=== PATIENT | male | born 1990 | race Caucasian/White ===

== ENCOUNTER 2016-11-28 00:48 | Emergency (ER) | payer OTHER ==
--- NOTE | 2016-11-28 01:20 | ED ORDER SUMMARY ---
..... Patient: KIMI CELESTE JR OrderSheet [facility] VisitID: [id number] [address] [place] [address] 26y, M Registration Date/Time: 11/28/2016 ORDER SHEET Weight: 83.9 kg (stated) Allergies: Penicillin GENERAL ORDERS: Hand 3 or 4V Right Urgent (01:07 11/28/2016 Jose M Bradshaw) (1:12 AMcQuoid ER Tech1) Ice (01:07 11/28/2016 Jose M Bradshaw) (1:09 HSoule) MEDICATION ORDERS: IV FLUIDS: ORDER SHEET NOTES: [Electronically signed by Gabbi Tilley (02:54 11/28/2016)] [Electronically signed by Alexys Vences Dr. (09:57 12/05/2016)] [Electronically locked/signed by Gabbi Tilley (02:54 11/28/2016)]
--- NOTE | 2016-11-28 01:20 | ED NURSING NOTES ---
Clinical Report - Nurses [address] [place] [address] [place] [address] 11/28/2016 0:51 [id number] Triage time 00:56 Nov 28 2016. Chief Complaint: INJURY TO RIGHT HAND. SEPSIS SCREEN: Sepsis Screen: negative. Negative (no infection suspected/documented). TOBI COMA SCORE: Tobi Coma Scale: 15- eyes open spontaneously (4); best verbal response- oriented x 4 (5); best motor response- obeys commands (6). --01:03 AliM 00:56 11/28/16. BP: 123/77. HR: 89. RR: 14. O2 saturation: 98%. Temp: 97.8 F (oral). Pain level now: 04/11. --01:03 AliM. Weight: 83.9 kg stated. Height/Length: 77 inches Per Patient. BMI: 22. --01:02 AliM. Medications None. --00:58 AliM. Allergies Penicillin. --00:58 AliM. History Arrived by private vehicle. Historian: patient. Accompanied by family. Primary physician (no PCP). ( Swollen Right hand). This occurred just prior to arrival. Mechanism of injury: a single moderate blow (Pt hit wall). ( Pt states he hit the wall with his right hand.). No neck pain, weakness or numbness. PAST MEDICAL HX: Tetanus immunization status is not up-to-date. SOCIAL HX: Light tobacco smoker- less than 1/2 a pack per day. Alcohol use; consumes beer daily. History of occasional drug use: marijuana. No infectious disease exposure. ABUSE ASSESSMENT: No report of abuse. FALL RISK ASSESSMENT: Fall risk assessment completed. No fall risk identified. NUTRITIONAL RISK ASSESSMENT: The nutritional risk assessment revealed no deficiencies. FUNCTIONAL ASSESSMENT: Functional assessment: no impairments noted. LEARNING NEEDS ASSESSMENT: The learning needs assessment revealed no barriers. SKIN INTEGRITY ASSESSMENT: Skin integrity risk assessment completed. No skin integrity risk identified. --01:03 AliM. ADDITIONAL SURGERIES: Appendectomy. --00:58 AliM. Interventions ID band on patient. To treatment room. --01:03 Yulissa. PHYSICAL ASSESSMENT Ambulatory to room. GENERAL / NEURO / PSYCH: Oriented X 4. Alert. Appears in no acute distress. EXTREMITIES: Limited ROM present in the right hand. Capillary refill is less than 2 seconds in the extremities. Extremity pulses are within normal limits. Right hand: tenderness, swelling and ecchymosis (Lateral 3 knuckles are swollen, ecchymosis present.). SKIN: Skin is warm and dry. --01:05 AliM. NURSING PROGRESS NOTES Reassurance given. Two patient identifiers checked. Call light placed in reach. Side rails up x 1. Bed placed in lowest position. Brakes of bed on. Patient ready for evaluation- ED physician notified. --01:06 AliM Patient walked to radiology with tech. (01:11 Nov 28 2016). --01:11 Gabbi Tilley. DISPOSITION / DISCHARGE Condition at departure: unchanged. No learning barriers present. Discharge instructions provided and reviewed with the patient. Patient verbalized understanding. Written instructions provided in [place]. ( Taught pt not to drive while taking [place], may experience sleepiness, take with food if upset stomach occurs. Apply ice to right hand for 20 minutes at a time. Keep hand elevated to reduce swelling. Pt denied further questions.). The patient was discharged by the physician. He was discharged home and accompanied by seed district sales manager. He left the Emergency Department ambulatory and via private vehicle. Patient driving. FALL RISK ASSESSMENT: Fall risk assessment completed. No fall risk identified. --01:37 AliM 01:37 11/28/16. Pain level now: 04/11. --01:38 AliM 02:53 11/28/16. ( Charting reviewed by writing RN). --02:53 Gabbi Tilley. Locked/Released at 11/28/2016 2:54 by Gabbi Tilley,
--- NOTE | 2016-11-28 01:20 | ED NURSING NOTES ---
Clinical Report - Nurses [place] [address] [place] [address] 11/28/2016 0:51 [id number] Triage time 00:56 Nov 28 2016. Chief Complaint: INJURY TO RIGHT HAND. SEPSIS SCREEN: Sepsis Screen: negative. Negative (no infection suspected/documented). TOBI COMA SCORE: Tobi Coma Scale: 15- eyes open spontaneously (4); best verbal response- oriented x 4 (5); best motor response- obeys commands (6). --01:03 AliM 00:56 11/28/16. BP: 123/77. HR: 89. RR: 14. O2 saturation: 98%. Temp: 97.8 F (oral). Pain level now: 04/11. --01:03 AliM. Weight: 83.9 kg stated. Height/Length: 77 inches Per Patient. BMI: 22. --01:02 AliM. Medications None. --00:58 AliM. Allergies Penicillin. --00:58 AliM. History Arrived by private vehicle. Historian: patient. Accompanied by family. Primary physician (no PCP). ( Swollen Right hand). This occurred just prior to arrival. Mechanism of injury: a single moderate blow (Pt hit wall). ( Pt states he hit the wall with his right hand.). No neck pain, weakness or numbness. PAST MEDICAL HX: Tetanus immunization status is not up-to-date. SOCIAL HX: Light tobacco smoker- less than 1/2 a pack per day. Alcohol use; consumes beer daily. History of occasional drug use: marijuana. No infectious disease exposure. ABUSE ASSESSMENT: No report of abuse. FALL RISK ASSESSMENT: Fall risk assessment completed. No fall risk identified. NUTRITIONAL RISK ASSESSMENT: The nutritional risk assessment revealed no deficiencies. FUNCTIONAL ASSESSMENT: Functional assessment: no impairments noted. LEARNING NEEDS ASSESSMENT: The learning needs assessment revealed no barriers. SKIN INTEGRITY ASSESSMENT: Skin integrity risk assessment completed. No skin integrity risk identified. --01:03 AliM. ADDITIONAL SURGERIES: Appendectomy. --00:58 AliM. Interventions ID band on patient. To treatment room. --01:03 Yulissa. PHYSICAL ASSESSMENT Ambulatory to room. GENERAL / NEURO / PSYCH: Oriented X 4. Alert. Appears in no acute distress. EXTREMITIES: Limited ROM present in the right hand. Capillary refill is less than 2 seconds in the extremities. Extremity pulses are within normal limits. Right hand: tenderness, swelling and ecchymosis (Lateral 3 knuckles are swollen, ecchymosis present.). SKIN: Skin is warm and dry. --01:05 AliM. NURSING PROGRESS NOTES Reassurance given. Two patient identifiers checked. Call light placed in reach. Side rails up x 1. Bed placed in lowest position. Brakes of bed on. Patient ready for evaluation- ED physician notified. --01:06 AliM Patient walked to radiology with tech. (01:11 Nov 28 2016). --01:11 Gabbi Tilley. DISPOSITION / DISCHARGE Condition at departure: unchanged. No learning barriers present. Discharge instructions provided and reviewed with the patient. Patient verbalized understanding. Written instructions provided in [place]. ( Taught pt not to drive while taking [place], may experience sleepiness, take with food if upset stomach occurs. Apply ice to right hand for 20 minutes at a time. Keep hand elevated to reduce swelling. Pt denied further questions.). The patient was discharged by the physician. He was discharged home and accompanied by print designer. He left the Emergency Department ambulatory and via private vehicle. Patient driving. FALL RISK ASSESSMENT: Fall risk assessment completed. No fall risk identified. --01:37 AliM 01:37 11/28/16. Pain level now: 04/11. --01:38 AliM 02:53 11/28/16. ( Charting reviewed by writing RN). --02:53 Gabbi Tilley. Locked/Released at 11/28/2016 2:54 by Gabbi Tilley,
--- NOTE | 2016-11-28 01:20 | ED CLINICAL REPORT ---
Clinical Report - Physicians/Mid Levels [facility] [address] [place] [address] 11/28/2016 0:51 Patient: KIMI CELESTE JR Time Seen: 0100. Arrived- By private vehicle. Historian- patient. HISTORY OF PRESENT ILLNESS Chief Complaint: Injury to the right hand. The injury happened today. (punched a wall). Occurred at home. Patient is experiencing moderate pain. Patient denies injury to the head or neck. No other injury. REVIEW OF SYSTEMS No swelling, tingling, numbness, weakness or foreign body. No skin laceration. All systems otherwise negative, except as recorded above. PAST HISTORY See nurses notes. Tetanus immunization status is up-to-date. SOCIAL HISTORY Smoker- current status unknown. Occasional alcohol use. History of occasional drug use: marijuana. Is a local resident. ADDITIONAL NOTES The nursing notes have been reviewed. PHYSICAL EXAM Vital Signs: 11/28/2016 00:56 BP: 123/77. HR: 89. RR: 14. O2 saturation: 98%. Temp: 97.8 F. Pain level now: 7/10. Blood pressure normal. Oxygen saturation normal. Appearance: Alert. Oriented X3. No acute distress. Head: Head atraumatic. Eyes: Pupils equal, round and reactive to light. Eyes normal inspection. Neck: Normal inspection. Neck supple. C-spine non-tender. CVS: Normal heart rate and rhythm. Heart sounds normal. Pulses normal. Respiratory: No respiratory distress. Breath sounds normal. Chest nontender. Back: No tenderness. Normal inspection. ROM normal. Skin: Skin warm and dry. Skin intact. Extremities: (right hand swelling and ecchymosis over the distal metatarsals of the 4th - 5th digit. no crepitus. no lana abnormalities. no tenderness or evidence of trauma to the rest of the hand and upper extremity. compartments soft. skin intact.). Neuro, Vascular and Tendons: Vascular status intact. Sensation intact. Motor intact. Tendon function intact. LABS, X-RAYS, AND EKG Rt Hand X-ray: No fracture. Normal alignment. No bony lesion, air in the soft tissue or foreign body. Joint spaces normal. Soft tissue swelling. Views: AP, lateral and oblique. Technique: good. The X-rays were independently viewed by me and interpreted contemporaneously by me. PROGRESS AND PROCEDURES Course of Care: he patient is a pleasant 26-year-old male presenting for regards to right-sided hand pain. Patient with swelling noted to thedorsal aspect of the right hand. No bony abnormalities noted. Patient will be evaluated radiographs for any evidence of boxer's fracture. Patient is neurovascularly intact. No signs of infection. Skin is also intact. No concern for fight bite. Patient's radiographs are noted for the findings above. No acute osseous abnormalities noted on my examination. REPEAT EXAMINATION Patient continues to be neurovascularly intact. Discussed with patient diagnosis, workup, home care, follow-up, and return precautions. Also discussed with patient diagnncertainty here in the emergency department and need for follow-up and the clinic. Also discussed with patient possibility of missed fractures here in the emergency department radiographs reviewed here. CLINICAL IMPRESSION Single contusion with soft tissue hematoma to the right hand. INSTRUCTIONS Warnings: GENERAL WARNINGS: Return or contact your physician immediately if your condition worsens or changes unexpectedly, if not improving as expected, or if other problems arise. Specifically return if pain, vomiting, bleeding, breathing difficulty or fever. Your Current Medications: CONTINUE TAKING THE FOLLOWING MEDICATIONS: None*. Prescription Medications: [place] 5 mg / 325 mg tablets: take 1 orally every 6 hours as needed for pain. Dispense ten (10). No refill. Substitution is permissible. OTC Medications: Motrin (available over the counter): take according to label instructions. Follow-up: Return to the emergency department as needed. Follow up with your doctor in three days. Reason for referral: recheck today's concerns. Summary of care provided to patient via paper. Screening today revealed the patient's blood pressure to be in the normal range. The patient should follow up with a primary care provider for blood pressure management. Understanding of the discharge instructions verbalized by patient. (Electronically signed by Alexys Vences Dr. 12/05/2016 9:57)
--- NOTE | 2016-11-28 01:20 | ED ORDER SUMMARY ---
..... Patient: KIMI CELESTE JR OrderSheet [facility] VisitID: [id number] [address] [place] [address] 26y, M Registration Date/Time: 11/28/2016 ORDER SHEET Weight: 83.9 kg (stated) Allergies: Penicillin GENERAL ORDERS: Hand 3 or 4V Right Urgent (01:07 11/28/2016 Jose M Bradshaw) (1:12 AMcQuoid ER Tech1) Ice (01:07 11/28/2016 Jose M Bradshaw) (1:09 HSoule) MEDICATION ORDERS: IV FLUIDS: ORDER SHEET NOTES: [Electronically signed by Gabbi Tilley (02:54 11/28/2016)] [Electronically signed by Alexys Vences Dr. (09:57 12/05/2016)] [Electronically locked/signed by Gabbi Tilley (02:54 11/28/2016)]
--- NOTE | 2016-11-28 08:20 | DIAGNOSTIC IMAGING REPORT ---
PROCEDURE: XR HAND 3 OR 4 VIEWS - RIGHT INDICATION: TRAUMA/INJURY TECHNIQUE: Four views of the right hand. COMPARISON: None. FINDINGS: Normal mineralization. No fractures. Normal osseous alignment. No suspicious soft-tissue calcification or radiodense foreign bodies. IMPRESSION: 1. Intact right hand.
--- NOTE | 2016-12-05 09:57 | ED MED RECONCILIATION SUMMARY ---
Patient: KIMI CELESTE Medication Reconciliation Report [facility] VisitID: [id number] [address] [place] [address] 26y, M Registration Date/Time: 11/28/2016 Weight: 83.9 kg Height/Length: 77 in. BMI: 22.0 ALLERGIES: Penicillin The patient's Home Medications are listed below: NONE. The source(s) of the original Home Medication information: Not obtained. The following Medications were given to the patient in the Emergency Department: None. The following Medications were prescribed to the patient: Motrin (available over the counter): take according to label instructions. -- Alexys Vences Dr. [place] 5 mg / 325 mg tablets: take 1 orally every 6 hours as needed for pain. Dispense ten (10). No refill. Substitution is permissible. -- Alexys Vences Dr.
--- NOTE | 2016-12-05 09:57 | ED DISCHARGE INSTRUCTIONS ---
Patient: KIMI CELESTE JR General Instructions [facility] VisitID: [id number] [place] [address] 26y, M Registration Date/Time: 11/28/2016 Single contusion with soft tissue hematoma to the right hand. INSTRUCTIONS Warnings: GENERAL WARNINGS: Return or contact your physician immediately if your condition worsens or changes unexpectedly, if not improving as expected, or if other problems arise. Specifically return if pain, vomiting, bleeding, breathing difficulty or fever. Your Current Medications: CONTINUE TAKING THE FOLLOWING MEDICATIONS: None*. Prescription Medications: [place] 5 mg / 325 mg tablets: take 1 orally every 6 hours as needed for pain. Dispense ten (10). No refill. Substitution is permissible. OTC Medications: Motrin (available over the counter): take according to label instructions. Follow-up: Return to the emergency department as needed. Follow up with your doctor in three days. Reason for referral: recheck today's concerns. Summary of care provided to patient via paper. Screening today revealed the patient's blood pressure to be in the normal range. The patient should follow up with a primary care provider for blood pressure management. Understanding of the discharge instructions verbalized by patient. ADDITIONAL INFORMATION Contusion: Hand You have a CONTUSION of your hand. This causes local pain, swelling and sometimes bruising. There are no broken bones. This injury takes from a few days to a few weeks to heal. Home Care: 1) Keep your arm elevated to reduce pain and swelling. This is very important during the first 48 hours. 2) Apply an ice pack (ice cubes in a plastic bag, wrapped in a towel) over the injured area for 20 minutes every 1-2 hours the first day. You should continue with ice packs 3-4 times a day for the next two days. Continue the use of ice packs for relief of pain and swelling as needed. 3) You may use acetaminophen (Tylenol) or ibuprofen (Motrin, Advil) to control pain, unless another pain medicine was prescribed. [ NOTE : If you have chronic liver or kidney disease or ever had a stomach ulcer or GI bleeding, talk with your doctor before using these medicines.] Follow Up with your doctor or this facility if you are not starting to improve within the next THREE days. [NOTE: If X-rays were taken, they will be reviewed by a radiologist. You will be notified of any new findings that may affect your care.] Get Prompt Medical Attention if any of the following occur: -- Pain or swelling increases -- Redness, warmth or drainage -- Hand or fingers becomes cold, blue, numb or tingly Hydrocodone Bitartrate, Acetaminophen Oral tablet What is this medicine? ACETAMINOPHEN; HYDROCODONE (a set a BLANCA nayeli fen; fabrice droe KOE done) is a pain reliever. It is used to treat mild to moderate pain. How should I use this medicine? Take this medicine by mouth. Swallow it with a full glass of water. Follow the directions on the prescription label. If the medicine upsets your stomach, take the medicine with food or milk. Do not take more than you are told to take. Talk to your aviation project engineer regarding the use of this medicine in children. This medicine is not approved for use in children. What side effects may I notice from receiving this medicine? Side effects that you should report to your doctor or health healthcare liaison as soon as possible: allergic reactions like skin rash, itching or hives, swelling of the face, lips, or tongue breathing problems confusion feeling faint or lightheaded, falls stomach pain yellowing of the eyes or skin Side effects that usually do not require medical attention (report to your doctor or health healthcare liaison if they continue or are bothersome): nausea, vomiting stomach upset What may interact with this medicine? alcohol antihistamines isoniazid medicines for depression, anxiety, or psychotic disturbances medicines for sleep muscle relaxants naltrexone narcotic medicines (opiates) for pain phenobarbital ritonavir tramadol What if I miss a dose? If you miss a dose, take it as soon as you can. If it is almost time for your next dose, take only that dose. Do not take double or extra doses. Where should I keep my medicine? Keep out of the reach of children. This medicine can be abused. Keep your medicine in a safe place to protect it from theft. Do not share this medicine with anyone. Selling or giving away this medicine is dangerous and against the law. Store at room temperature between 15 and 30 degrees C (59 and 86 degrees F). Protect from light. Keep container tightly closed. Throw away any unused medicine after the expiration date. Discard unused medicine and used packaging carefully. Pets and children can be harmed if they find used or lost packages. What should I tell my health care provider before I take this medicine? They need to know if you have any of these conditions: brain tumor Crohn's disease, inflammatory bowel disease, or ulcerative colitis drink more than 3 alcohol-containing drinks per day drug abuse or addiction head injury heart or circulation problems kidney disease or problems going to the bathroom liver disease lung disease, asthma, or breathing problems an unusual or allergic reaction to acetaminophen, hydrocodone, other opioid analgesics, other medicines, foods, dyes, or preservatives or trying to get breast-feeding What should I watch for while using this medicine? Tell your doctor or health healthcare liaison if your pain does not go away, if it gets worse, or if you have new or a different type of pain. You may develop tolerance to the medicine. Tolerance means that you will need a higher dose of the medicine for pain relief. Tolerance is normal and is expected if you take the medicine for a long time. Do not suddenly stop taking your medicine because you may develop a severe reaction. Your body becomes used to the medicine. This does NOT mean you are addicted. Addiction is a behavior related to getting and using a drug for a non-medical reason. If you have pain, you have a medical reason to take pain medicine. Your doctor will tell you how much medicine to take. If your doctor wants you to stop the medicine, the dose will be slowly lowered over time to avoid any side effects. You may get drowsy or dizzy when you first start taking the medicine or change doses. Do not drive, use machinery, or do anything that may be dangerous until you know how the medicine affects you. Stand or sit up slowly. There are different types of narcotic medicines (opiates) for pain. If you take more than one type at the same time, you may have more side effects. Give your health care provider a list of all medicines you use. Your doctor will tell you how much medicine to take. Do not take more medicine than directed. Call emergency for help if you have problems breathing. The medicine will cause constipation. Try to have a bowel movement at least every 2 to 3 days. If you do not have a bowel movement for 3 days, call your doctor or health healthcare liaison. Too much acetaminophen can be very dangerous. Do not take Tylenol (acetaminophen) or medicines that contain acetaminophen with this medicine. Many non-prescription medicines contain acetaminophen. Always read the labels carefully. You have been given the following additional information: Contusion, Hand Hydrocodone Bitartrate, Acetaminophen Oral tablet (Electronically signed by Alexys Vences Dr. 12/05/2016 9:57)
--- NOTE | 2016-12-05 09:57 | ED MAR SUMMARY ---
..... Medication Administration Record [facility] [address] [place], [place] [id number] Patient: KIMI CELESTE Visit ID: [id number] 26y, M Weight: 83.9 kg Height/Length: 77 in BMI: 22 ALLERGIES: Penicillin
--- NOTE | 2016-12-05 09:57 | ED DISCHARGE INSTRUCTIONS ---
Patient: KIMI CELESTE JR General Instructions [facility] VisitID: [id number] [place] [address] 26y, M Registration Date/Time: 11/28/2016 Single contusion with soft tissue hematoma to the right hand. INSTRUCTIONS Warnings: GENERAL WARNINGS: Return or contact your physician immediately if your condition worsens or changes unexpectedly, if not improving as expected, or if other problems arise. Specifically return if pain, vomiting, bleeding, breathing difficulty or fever. Your Current Medications: CONTINUE TAKING THE FOLLOWING MEDICATIONS: None*. Prescription Medications: [place] 5 mg / 325 mg tablets: take 1 orally every 6 hours as needed for pain. Dispense ten (10). No refill. Substitution is permissible. OTC Medications: Motrin (available over the counter): take according to label instructions. Follow-up: Return to the emergency department as needed. Follow up with your doctor in three days. Reason for referral: recheck today's concerns. Summary of care provided to patient via paper. Screening today revealed the patient's blood pressure to be in the normal range. The patient should follow up with a primary care provider for blood pressure management. Understanding of the discharge instructions verbalized by patient. ADDITIONAL INFORMATION Contusion: Hand You have a CONTUSION of your hand. This causes local pain, swelling and sometimes bruising. There are no broken bones. This injury takes from a few days to a few weeks to heal. Home Care: 1) Keep your arm elevated to reduce pain and swelling. This is very important during the first 48 hours. 2) Apply an ice pack (ice cubes in a plastic bag, wrapped in a towel) over the injured area for 20 minutes every 1-2 hours the first day. You should continue with ice packs 3-4 times a day for the next two days. Continue the use of ice packs for relief of pain and swelling as needed. 3) You may use acetaminophen (Tylenol) or ibuprofen (Motrin, Advil) to control pain, unless another pain medicine was prescribed. [ NOTE : If you have chronic liver or kidney disease or ever had a stomach ulcer or GI bleeding, talk with your doctor before using these medicines.] Follow Up with your doctor or this facility if you are not starting to improve within the next THREE days. [NOTE: If X-rays were taken, they will be reviewed by a radiologist. You will be notified of any new findings that may affect your care.] Get Prompt Medical Attention if any of the following occur: -- Pain or swelling increases -- Redness, warmth or drainage -- Hand or fingers becomes cold, blue, numb or tingly Hydrocodone Bitartrate, Acetaminophen Oral tablet What is this medicine? ACETAMINOPHEN; HYDROCODONE (a set a BLANCA nayeli fen; fabrice droe KOE done) is a pain reliever. It is used to treat mild to moderate pain. How should I use this medicine? Take this medicine by mouth. Swallow it with a full glass of water. Follow the directions on the prescription label. If the medicine upsets your stomach, take the medicine with food or milk. Do not take more than you are told to take. Talk to your rough rounder regarding the use of this medicine in children. This medicine is not approved for use in children. What side effects may I notice from receiving this medicine? Side effects that you should report to your doctor or health home health aide caregiver as soon as possible: allergic reactions like skin rash, itching or hives, swelling of the face, lips, or tongue breathing problems confusion feeling faint or lightheaded, falls stomach pain yellowing of the eyes or skin Side effects that usually do not require medical attention (report to your doctor or health home health aide caregiver if they continue or are bothersome): nausea, vomiting stomach upset What may interact with this medicine? alcohol antihistamines isoniazid medicines for depression, anxiety, or psychotic disturbances medicines for sleep muscle relaxants naltrexone narcotic medicines (opiates) for pain phenobarbital ritonavir tramadol What if I miss a dose? If you miss a dose, take it as soon as you can. If it is almost time for your next dose, take only that dose. Do not take double or extra doses. Where should I keep my medicine? Keep out of the reach of children. This medicine can be abused. Keep your medicine in a safe place to protect it from theft. Do not share this medicine with anyone. Selling or giving away this medicine is dangerous and against the law. Store at room temperature between 15 and 30 degrees C (59 and 86 degrees F). Protect from light. Keep container tightly closed. Throw away any unused medicine after the expiration date. Discard unused medicine and used packaging carefully. Pets and children can be harmed if they find used or lost packages. What should I tell my health care provider before I take this medicine? They need to know if you have any of these conditions: brain tumor Crohn's disease, inflammatory bowel disease, or ulcerative colitis drink more than 3 alcohol-containing drinks per day drug abuse or addiction head injury heart or circulation problems kidney disease or problems going to the bathroom liver disease lung disease, asthma, or breathing problems an unusual or allergic reaction to acetaminophen, hydrocodone, other opioid analgesics, other medicines, foods, dyes, or preservatives or trying to get breast-feeding What should I watch for while using this medicine? Tell your doctor or health home health aide caregiver if your pain does not go away, if it gets worse, or if you have new or a different type of pain. You may develop tolerance to the medicine. Tolerance means that you will need a higher dose of the medicine for pain relief. Tolerance is normal and is expected if you take the medicine for a long time. Do not suddenly stop taking your medicine because you may develop a severe reaction. Your body becomes used to the medicine. This does NOT mean you are addicted. Addiction is a behavior related to getting and using a drug for a non-medical reason. If you have pain, you have a medical reason to take pain medicine. Your doctor will tell you how much medicine to take. If your doctor wants you to stop the medicine, the dose will be slowly lowered over time to avoid any side effects. You may get drowsy or dizzy when you first start taking the medicine or change doses. Do not drive, use machinery, or do anything that may be dangerous until you know how the medicine affects you. Stand or sit up slowly. There are different types of narcotic medicines (opiates) for pain. If you take more than one type at the same time, you may have more side effects. Give your health care provider a list of all medicines you use. Your doctor will tell you how much medicine to take. Do not take more medicine than directed. Call emergency for help if you have problems breathing. The medicine will cause constipation. Try to have a bowel movement at least every 2 to 3 days. If you do not have a bowel movement for 3 days, call your doctor or health home health aide caregiver. Too much acetaminophen can be very dangerous. Do not take Tylenol (acetaminophen) or medicines that contain acetaminophen with this medicine. Many non-prescription medicines contain acetaminophen. Always read the labels carefully. You have been given the following additional information: Contusion, Hand Hydrocodone Bitartrate, Acetaminophen Oral tablet (Electronically signed by Alexys Vences Dr. 12/05/2016 9:57)
--- NOTE | 2016-12-05 09:57 | ED MED RECONCILIATION SUMMARY ---
Patient: KIMI CELESTE Medication Reconciliation Report VisitID: [id number] [address] [place] [address] 26y, M Registration Date/Time: 11/28/2016 Weight: 83.9 kg Height/Length: 77 in. BMI: 22.0 ALLERGIES: Penicillin The patient's Home Medications are listed below: NONE. The source(s) of the original Home Medication information: Not obtained. The following Medications were given to the patient in the Emergency Department: None. The following Medications were prescribed to the patient: Motrin (available over the counter): take according to label instructions. -- Alexys Vences Dr. [place] 5 mg / 325 mg tablets: take 1 orally every 6 hours as needed for pain. Dispense ten (10). No refill. Substitution is permissible. -- Alexys Vecnes Dr.
--- NOTE | 2016-12-05 09:57 | ED MAR SUMMARY ---
..... Medication Administration Record [facility] [address] [place], [place] [id number] Patient: KIMI CELESTE Visit ID: [id number] 26y, M Weight: 83.9 kg Height/Length: 77 in BMI: 22 ALLERGIES: Penicillin
== END 2016-11-28 01:35 | disposition home or self-care (01) ==
LOC: ED SRH 00:48
DX: S60.221A Contusion of right hand, initial encounter (principal); X58.XXXA Exposure to other specified factors, initial encounter; Y99.9 Unspecified external cause status; Y92.009 Unspecified place in unspecified non-institutional (private) residence as the place of occurrence of the external cause; Y93.9 Activity, unspecified

== ENCOUNTER 2017-04-02 17:09 | Emergency (ER) | payer SELFPAY ==
--- NOTE | 2017-04-02 17:30 | ED NURSING NOTES ---
Clinical Report - Nurses [facility] [address] [place] [address] 04/02/2017 17:10 Patient: KIMI CELESTE JR TRIAGE Acuity: LEVEL 5. Chief Complaint: SKIN LESION and INSECT BITE Alert. No acute distress. SEPSIS SCREEN: Sepsis Screen. Negative (no infection suspected/documented). --17:21 Nakita Johns R.N. 17:17 04/02/17. BP: 128/86. HR: 77. RR: 20. O2 saturation: 98% on room air. Temp: 97.9 F (oral). Pain level now: 0/10. --17:21 Nakita Johns R.N. Weight: 81.6 kg stated. Height/Length: 77 inches Per Patient. BMI: 21.3. --17:19 Nakita Johns R.N. Medications None. --17:18 Nakita Johns R.N. Medication/allergy information source: the patient. --17:21 Nakita Johns R.N. Allergies Penicillin. --17:18 Nakita Johns R.N. History Arrived by private vehicle. Historian: patient. Accompanied by friend. Primary physician (none). Reported as located on the left shoulder. This started just prior to arrival. Not itchy, burning or painful. 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 PAST MEDICAL HX: Immunizations: status is unknown. SOCIAL HX: Current every day light tobacco smoker (cigarette)- less than 1/2 a pack per day. Occasional alcohol use. No drug use. FALL RISK ASSESSMENT: Fall risk assessment completed. No fall risk identified. NUTRITIONAL RISK ASSESSMENT: The nutritional risk assessment revealed no deficiencies. FUNCTIONAL ASSESSMENT: Functional assessment: no impairments noted. LEARNING NEEDS ASSESSMENT: The learning needs assessment revealed no barriers. SKIN INTEGRITY ASSESSMENT: Skin integrity risk assessment completed. No skin integrity risk identified. --17:21 Nakita Johns R.N. ADDITIONAL SURGERIES: Appendectomy. --17:18 Nakita Johns R.N. Assessment GENERAL / NEURO / PSYCH: Alert. Oriented X 4. Appears in no acute distress. Patient appears calm and cooperative. RESPIRATORY: Respirations not labored. CVS: Capillary refill less than 2 seconds. GI / : Abdomen soft and nontender. SKIN: Mucous membranes are pink. Skin is warm and dry. --17:21 Nakita Johns R.N. Interventions ID band on patient. To treatment room. --17:21 Nakita Johns R.N. PHYSICAL ASSESSMENT 17:25 04/02/17. Ambulatory to room. GENERAL / NEURO / PSYCH: Alert. The patient does not appear to be in acute distress. Oriented X 4. HEENT: Pupils equal, round and reactive to light. Mucous membranes are pink. RESPIRATORY: Respirations not labored. CVS: Capillary refill less than 2 seconds. GI / : Abdomen nontender. SKIN: Skin is intact, warm and dry. No skin rash. --17:25 Nakita Johns R.N. DISPOSITION / DISCHARGE Departure time: 17:30 Apr 02 2017. Condition at departure: unchanged and stable. No learning barriers present. The patient left prior to discharge education being provided. The patient was discharged by the nurse practitioner. He was discharged home and accompanied by dining manager. He left the Emergency Department ambulatory and via private vehicle. Tennis Centre Manager driving. --18:03 Nakita Johns R.N. Locked/Released at 04/02/2017 18:04 by Nakita Johns R.N.
--- NOTE | 2017-04-02 17:30 | ED CLINICAL REPORT ---
Clinical Report - Physicians/Mid Levels [facility] [address] [place] [address] 04/02/2017 17:10 Patient: KIMI CELESTE JR Time Seen: 17:22; initial patient contact, initial documentation, patient care assumed. Arrived- By private vehicle. Historian- patient. HISTORY OF PRESENT ILLNESS Chief Complaint: LESION and INSECT BITE. This started unknown and is still present and worsening. Not itchy, painful or burning. It has been located on the left shoulder. No cause has been identified. (has no idea what bit/stung him or what happened or how long it has been there, today, family member noticed red streak and it was going towards it heart and they told him that it could kill him, so he came in). Similar symptoms previously: None. Recent medical care: Not recently seen/assessed. REVIEW OF SYSTEMS No fever. All systems otherwise negative, except as recorded above. PAST HISTORY Negative. See nurses notes. ADDITIONAL SURGERIES: Appendectomy. --17:18 Nakita Johns R.N. SOCIAL HISTORY Light tobacco smoker. Occasional alcohol use. No drug use. No recent travel. Is a local resident. FAMILY HISTORY Negative. ADDITIONAL NOTES The nursing notes have been reviewed with agreement regarding the chief complaint, HPI, ROS, PMH and patient medications and allergies. PHYSICAL EXAM Vital Signs: 04/02/2017 17:17 BP: 128/86. HR: 77. RR: 20. O2 saturation: 98%. Temp: 97.9 F. Pain level now: 0/10. Have been reviewed as normal and appear to be correct. Appearance: Alert. Oriented X3. No acute distress. Eyes: Pupils equal, round and reactive to light. Conjunctivae and eyelids normal. Neck: Neck supple. Respiratory: No respiratory distress. Skin: Skin warm and dry. Normal skin color. No rash. Normal skin turgor. Small area of erythema (L anterior shoulder has pin point dot on it with approx 2cm line ? streaking from it, ?abrasion, ?bite). No tenderness, warmth, swelling or lymphangitis. Extremities: Normal external inspection. Extremities nontender. Neuro: Oriented X 3. No motor deficit. No sensory deficit. PROGRESS AND PROCEDURES Course of Care: pt given x2 packets of bacitracin, and instructed to apply it twice daily in case area was starting to get infected, pt very happy and thanked me for the care and fast service. Patient and spouse counseled in person regarding the patient's stable condition and diagnosis. Differential Diagnosis: Other possible considerations: insect bite/sting, abrasion, abscess, mrsa, cellulitis, acne. Above considerations are based on history and physical exam. Differential diagnosis was discussed with patient. Disposition: Discharged home in good and unchanged condition (17:29). Condition: good and stable. CLINICAL IMPRESSION Single unknown insect bite to the left shoulder. Local allergic reaction. No infection. Left. INSTRUCTIONS Warnings: GENERAL WARNINGS: Return or contact your physician immediately if your condition worsens or changes unexpectedly, if not improving as expected, or if other problems arise. Specifically return if problem worsens. Follow-up: Follow up with your doctor in about five days as needed. Call for an appointment. Summary of care provided to patient. Understanding of the discharge instructions verbalized by patient. (Electronically signed by Nikky Davis A.R.N.P. 04/02/2017 18:02)
--- NOTE | 2017-04-02 17:30 | ED NURSING NOTES ---
Clinical Report - Nurses [facility] [address] [place] [address] 04/02/2017 17:10 Patient: KIMI CELESTE JR TRIAGE Acuity: LEVEL 5. Chief Complaint: SKIN LESION and INSECT BITE Alert. No acute distress. SEPSIS SCREEN: Sepsis Screen. Negative (no infection suspected/documented). --17:21 Nakita Johns R.N. 17:17 04/02/17. BP: 128/86. HR: 77. RR: 20. O2 saturation: 98% on room air. Temp: 97.9 F (oral). Pain level now: 0/10. --17:21 Nakita Johns R.N. Weight: 81.6 kg stated. Height/Length: 77 inches Per Patient. BMI: 21.3. --17:19 Nakita Johns R.N. Medications None. --17:18 Nakita Johns R.N. Medication/allergy information source: the patient. --17:21 Nakita Johns R.N. Allergies Penicillin. --17:18 Nakita Johns R.N. History Arrived by private vehicle. Historian: patient. Accompanied by friend. Primary physician (none). Reported as located on the left shoulder. This started just prior to arrival. Not itchy, burning or painful. 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 PAST MEDICAL HX: Immunizations: status is unknown. SOCIAL HX: Current every day light tobacco smoker (cigarette)- less than 1/2 a pack per day. Occasional alcohol use. No drug use. FALL RISK ASSESSMENT: Fall risk assessment completed. No fall risk identified. NUTRITIONAL RISK ASSESSMENT: The nutritional risk assessment revealed no deficiencies. FUNCTIONAL ASSESSMENT: Functional assessment: no impairments noted. LEARNING NEEDS ASSESSMENT: The learning needs assessment revealed no barriers. SKIN INTEGRITY ASSESSMENT: Skin integrity risk assessment completed. No skin integrity risk identified. --17:21 Nakita Johns R.N. ADDITIONAL SURGERIES: Appendectomy. --17:18 Nakita Johns R.N. Assessment GENERAL / NEURO / PSYCH: Alert. Oriented X 4. Appears in no acute distress. Patient appears calm and cooperative. RESPIRATORY: Respirations not labored. CVS: Capillary refill less than 2 seconds. GI / : Abdomen soft and nontender. SKIN: Mucous membranes are pink. Skin is warm and dry. --17:21 Nakita Johns R.N. Interventions ID band on patient. To treatment room. --17:21 Nakita Johns R.N. PHYSICAL ASSESSMENT 17:25 04/02/17. Ambulatory to room. GENERAL / NEURO / PSYCH: Alert. The patient does not appear to be in acute distress. Oriented X 4. HEENT: Pupils equal, round and reactive to light. Mucous membranes are pink. RESPIRATORY: Respirations not labored. CVS: Capillary refill less than 2 seconds. GI / : Abdomen nontender. SKIN: Skin is intact, warm and dry. No skin rash. --17:25 Nakita Johns R.N. DISPOSITION / DISCHARGE Departure time: 17:30 Apr 02 2017. Condition at departure: unchanged and stable. No learning barriers present. The patient left prior to discharge education being provided. The patient was discharged by the nurse practitioner. He was discharged home and accompanied by water treatment plant supervisor. He left the Emergency Department ambulatory and via private vehicle. [employer] Controller driving. --18:03 Nakita Johns R.N. Locked/Released at 04/02/2017 18:04 by Nakita Johns R.N.
--- NOTE | 2017-04-02 18:04 | ED MAR SUMMARY ---
..... Medication Administration Record [facility] [address] [place], [place] [id number] Patient: KIMI CELESTE Visit ID: [id number] 26y, M Weight: 81.6 kg Height/Length: 77 in BMI: 21.3 ALLERGIES: Penicillin
--- NOTE | 2017-04-02 18:04 | ED MED RECONCILIATION SUMMARY ---
Patient: KIMI CELESTE JR Medication Reconciliation Report [facility] VisitID: [id number] [address] [place] [address] 26y, M Registration Date/Time: 04/02/2017 Weight: 81.6 kg Height/Length: 77 in. BMI: 21.3 ALLERGIES: Penicillin The patient's Home Medications are listed below: NONE. The source(s) of the original Home Medication information: patient The following Medications were given to the patient in the Emergency Department: None. The following Medications were prescribed to the patient: None.
--- NOTE | 2017-04-02 18:04 | ED MAR SUMMARY ---
..... Medication Administration Record [facility] [address] [place], [place] [id number] Patient: KIMI CELESTE Visit ID: [id number] 26y, M Weight: 81.6 kg Height/Length: 77 in BMI: 21.3 ALLERGIES: Penicillin
--- NOTE | 2017-04-02 18:04 | ED MED RECONCILIATION SUMMARY ---
Patient: KIMI CELESTE JR Medication Reconciliation Report [facility] VisitID: [id number] [address] [place] [address] 26y, M Registration Date/Time: 04/02/2017 Weight: 81.6 kg Height/Length: 77 in. BMI: 21.3 ALLERGIES: Penicillin The patient's Home Medications are listed below: NONE. The source(s) of the original Home Medication information: patient The following Medications were given to the patient in the Emergency Department: None. The following Medications were prescribed to the patient: None.
--- NOTE | 2017-04-02 18:04 | ED DISCHARGE INSTRUCTIONS ---
Patient: KIMI CELESTE JR General Instructions [facility] VisitID: [id number] [place] [address] 26y, M Registration Date/Time: 04/02/2017 Single unknown insect bite to the left shoulder. Local allergic reaction. No infection. Left. INSTRUCTIONS Warnings: GENERAL WARNINGS: Return or contact your physician immediately if your condition worsens or changes unexpectedly, if not improving as expected, or if other problems arise. Specifically return if problem worsens. Follow-up: Follow up with your doctor in about five days as needed. Call for an appointment. Summary of care provided to patient. Understanding of the discharge instructions verbalized by patient. ADDITIONAL INFORMATION Insect Sting:Local Reaction You have been stung or bitten by an insect. The insects venom or body fluid is causing your skin to react in the area where you were stung or bitten. This often causes redness, itching and swelling. This reaction will fade over a few hours to a few days. An insect bite/sting can become infected 1-3 days later, so watch for the signs below. Sometimes it is hard to tell the difference between a local reaction to the insect bite/sting and an early infection, so antibiotics may be started. Home Care: If itching is a problem, avoid things that heat up your skin (hot showers or baths, direct sunlight) since this will make itching worse. An ice pack (ice cubes in a plastic bag, wrapped in a towel) will reduce local areas of redness and itching. Lanacaine cream or Solarcaine spray (or other product containing "benzocaine") will reduce the itching. Oral Benadryl (diphenhydramine) is an antihistamine available at drug and grocery stores. Unless a prescription antihistamine was given, Benadryl may be used to reduce itching if large areas of the skin are involved. Use lower doses during the daytime and higher doses at bedtime since the drug may make you sleepy. [NOTE: Do not use Benadryl if you have glaucoma or if you are a man with trouble urinating due to an enlarged prostate.] Claritin (loratadine) is an antihistamine that causes less drowsiness and is a good alternative for daytime use. If oral ANTIBIOTICS were prescribed, be sure to take them until finished. You may use acetaminophen (Tylenol) or ibuprofen (Motrin, Advil) to control pain, unless another pain medicine was prescribed. [NOTE: If you have chronic liver or kidney disease or ever had a stomach ulcer or GI bleeding, talk with your doctor before using these medicines.] Preventing Future Reactions: Future reactions could be worse than this one, so try to avoid situations where you might be stung again. Be aware that honeybees nest in trees. Wasps and yellow jackets nest in the ground, trees or roof eaves. If you are stung by a honeybee a stinger will remain in your skin. Wasps, yellow jackets, hornets do not leave a stinger behind. Move away from the nest area immediately. The stinger of a honeybee releases a substance that will attract other bees to you. Once you are away from the nest, then remove the stinger as quickly as possible. After any sting, you may apply ice and take Benadryl or other antihistamine. If you develop any of the warning signs below, seek help immediately. If you are at high risk for another sting or if your reaction included dizziness, fainting or trouble breathing or swallowing, ask your doctor for an Insect Allergy Kit. Follow Up with your doctor or this facility in two days if your symptoms do not start to improve. Get Prompt Medical Attention if any of the following occur: Spreading areas of itching, redness or swelling New or worse swelling in the face, eyelids, lips, mouth, throat or tongue Trouble swallowing or breathing Dizziness, weakness or fainting Signs of infection: Spreading redness Increased pain or swelling Fever of 100.4F (38C) or higher, or as directed by your healthcare provider Colored fluid draining from the wound Insect Bite/Sting, Infected You have been stung or bitten by an insect. Signs of infection include redness, itching, and slight swelling. Infections will need treatment with antibiotics and should improve over the next ten days. Home care The following will help you care for your bite or sting at home: If itching is a problem, applying ice packs to the sting area will help. Wash the area with soap and water at least three times a day. Apply a topical antibiotic cream or ointment. You can use an over-the counter antihistamine unless you were given a prescription antihistamine. Antihistamines may be used to reduce itching if large areas of the skin are involved. Use lower doses during the daytime and higher doses at bedtime since the drug may make you sleepy. Do not use an antihistamine if you have glaucoma or if you are a man with trouble urinating due to an enlarged prostate. Some antihistamines cause less drowsiness and are a good alternative for daytime use. If oral antibiotics have been prescribed, be sure to take them as directed until they are all finished. You may use acetaminophen or ibuprofen to control pain, unless another pain medicine was prescribed.If you have chronic liver or kidney disease or ever had a stomach ulcer or GI bleeding, talk with your doctor before using these medicines. Follow-up care Follow up with your doctor as directed if you do not improve over the next two days or if your symptoms worsen. When to seek medical care Get prompt medical attention if any of the following occur: Spreading areas of redness or swelling Swelling of the face, eyelids, mouth, throat, or tongue Difficulty swallowing or breathing Fever of 100.4F (38C) or higher, or as directed by your health care provider Increased local pain Headache, fever, chills, muscle or joint aching, vomiting, New rash You have been given the following additional information: Allergic Reaction, Insect (Local) Insect Sting/Bite, Infected (Electronically signed by Nikky Davis A.R.N.P. 04/02/2017 18:02)
== END 2017-04-02 17:30 | disposition home or self-care (01) ==
LOC: ED SRH 17:09
DX: S40.262A Insect bite (nonvenomous) of left shoulder, initial encounter (principal); T78.40XA Allergy, unspecified, initial encounter; W57.XXXA Bitten or stung by nonvenomous insect and other nonvenomous arthropods, initial encounter; Y93.9 Activity, unspecified; Y99.9 Unspecified external cause status; Y92.9 Unspecified place or not applicable; F17.210 Nicotine dependence, cigarettes, uncomplicated; Z88.0 Allergy status to penicillin